=== PATIENT | female | born 1985 | race Caucasian/White ===

== ENCOUNTER 2023-09-04 18:08 | Emergency (ER) | payer OTHER, SELFPAY ==
[2023-09-04 18:21] VITALS: BP 118/89
[2023-09-04 20:58] VITALS: BP 112/82
--- NOTE | 2023-09-04 21:40 | ED.GENMED ---
History of Present Illness
General
Chief Complaint: Abdominal Pain
Source: patient
Exam Limitations: none
Time Seen by Provider: 09/04/23 20:10
Nursing documentation reviewed up to this point in time: agreed with
Travel History
Have you had any contact with someone who has COVID-19?: No
Do you have any symptoms of coronavirus? Fever > 100 degrees, chills, cough, shortness of breath, sore throat, loss of taste or smell, muscle aches, or headache?: No
History of Present Illness
History of Present Illness:
Pt who has been taking Zepbound x 6 weeks for weight control, presents ED secondary to difficulty with bowel movement despite having the urge over the past 1 week. Patient has attempted Colace as well as enema at home, without improvement symptoms.
Denies fever or chills. Patient reports mild lower abdominal cramping sensation, with early satiety. Denies fever or chills. Denies trauma. Denies back pain. Denies difficulty with urination. Patient has had difficulty with bowel movements in
the past, with history of IBS, but states that her symptoms are more severe.
Past History
Past History
ED Past Medical History: None
ED Past Surgical History: None
Social History
Tobacco: Non-smoker
Alcohol: None
Review of Systems
Review of Systems
Allergies reviewed?: Yes
All Other Systems: ROS reviewed and negative except as documented in HPI and ROS
Constitutional: Reports no symptoms; Denies fever
ABD/GI: Reports abdominal pain and constipated; Denies nausea, vomiting or diarrhea
Musculoskeletal: Reports no symptoms
Skin: Reports no symptoms
Neurological: Reports no symptoms
Phy Exam
Physical Exam
Physical Exam:
Physical Exam
General: no apparent distress, not acutely ill. afebrile
Head: nc/at. eomi
Neck: supple. no meningeal signs.
Abdomen: normal bowel sounds. not tender. rectal exam (RADHA English, at bedside): no stool noted at rectal vault.
Neuro: alert and oriented. no focal neurological deficits
Skin: no rash
Psychiatric: well kept. interactive and cooperative
Extremities: no edema. no calf tenderness.
Course
Orders/Labs/Results
Orders:
Orders
09/04/23 21:07
Phosphate Enema [Fleet Phosphate Enema-Adult] 135 ml RECTAL NOW STA
09/04/23 21:08
Mineral Oil Enema [Fleet Mineral Oil Enema] 133 ml .ROUTE .STK-MED ONE
09/04/23 21:50
Enema- Treatment ONCE
Type: Milk of Molasses
09/04/23 22:22
Mineral Oil Enema [Fleet Mineral Oil Enema] 133 ml RECTAL NOW STA
09/04/23 23:32
Enema- Treatment ONCE
Type: Soap Suds
09/05/23 01:49
Magnesium Citrate [Citroma] 300 ml PO ONCE ONE
Vital Signs
Initial and Last Documented VS:
Initial Vital Signs
Temp Pulse Resp BP Pulse Ox
98.3 F 103 18 118/89 98
09/04/23 18:21 09/04/23 18:21 09/04/23 18:21 09/04/23 18:21 09/04/23 18:21
Last Documented Vital Signs
Temp Pulse Resp BP Pulse Ox
98.3 F 103 18 113/79 96
09/04/23 18:21 09/04/23 18:21 09/04/23 18:21 09/05/23 02:00 09/04/23 21:01
MDM/Problems Addressed
MDM/Problems Addressed:
X-ray from reviewed: no acute findings, i.e. dilated loops of bowel.
Pt given multiple enema with minimal bowel movements. However, as patient has had small BMs at home - as such, doubt obstructive process. As such, no indication for any additional imaging studies, i.e. CT scan, at this time. Will D/C home with mag
citrate along with recommendation to try Miralax at home, along with PMD/GI f/u.
In addition, discussed about routine noted on her urine study at urgent care center. Recommended repeat urinalysis with PCP. If proteinuria still exist, may need nephrology consultation as an outpatient.
Patient expresses understanding at time of discharge. Patient otherwise is afebrile, helically stable, and nontoxic-appearing at discharge.
*Critical Care Note
Total Time (30-74mins, 75-104mins- exclusive of procedures): Not Applicable
ED Attending Note
-
Portions of this chart may have been created with voice recognition software.� Occasional wrong word or��sound alike� substitutions may have occurred due to the inherent limitations of voice recognition software.
Discharge Plan
Departure
Patient Disposition: Home (Routine Discharge)
Date of Disposition: 09/05/23
Time of Disposition: 01:53
Patient with high blood pressure during this ER visit?: Yes
Discharge Problem:
Constipation
Instructions: Constipation, Adult ED
Prescriptions:
No Action
clonazepam 1 MG tablet
1 mg PO DAILYPRN PRN (Reason: anxiety)
Patient Comments:
04/28/2020: last filled 12/03/19, 45 tabs for 30 days from [facility]
Formula 1 TAB tablet
1 tab PO DAILY
ferrous sulfate [FeroSul] 325 MG tablet
325 mg PO DAILY
fluoxetine [Prozac] 40 MG capsule
50 mg PO DAILY
Patient Comments:
04/28/2020: take w/10mg= 50mg
acetaminophen 325 mg Tablet
650 mg PO Q4HPRN PRN (Reason: mild pain) Qty: 20 0RF
oxycodone-acetaminophen 5-325 mg Tablet
1 tab PO Q4HPRN PRN (Reason: moderate pain) Qty: 10 0RF
ibuprofen 600 mg Tablet
600 mg PO Q6HPRN PRN (Reason: cramps) Qty: 20 0RF
cyclobenzaprine 10 mg tablet
10 mg PO TID PRN (Reason: muscle spasm) Qty: 14 0RF
pantoprazole [Protonix] 40 mg tablet,delayed release (DR/EC)
40 mg PO DAILY Qty: 30 0RF
Referrals:
Xi Fletcher MD [Active] -
Gm Weinberg DO [Family Provider] -
Activity Restrictions/Additional Instructions:
As discussed, please follow-up with your GI physician and/or referred to clinical material handler for further evaluation and treatment especially in light of protein noted in your urine test. Please take hwph-lyb-fskczir MiraLAX twice daily x 3 days, and then
once daily until your bowel movements are regulated.
Interventions
Interventions:
*Risk Screen - Suicide Last Done: 09/04/23 18:24
*General Assessment Last Done: 09/04/23 18:24
*Neglect/Abuse Screening Last Done: 09/04/23 18:24
ED- Fall Risk Assessment Last Done: 09/04/23 21:00
*ED COVID-19 Vaccine History Last Done: 09/04/23 20:59
*Nursing Disposition Last Done: 09/05/23 02:05
TS-Nzsgxp-Rnsfoaokyp Assessment Last Done: 09/04/23 20:41
Discharge Date and Time
Discharge Date/Time: 09/05/23 02:06
Print Language: KHMER
[2023-09-04] MEDS: FLEET MINERAL OIL ENEMA 133 ML RECTAL (22:23)
[2023-09-05] MEDS: CITROMA 300 ML PO (01:59)
[2023-09-05 02:00] VITALS: BP 113/79
== END 2023-09-05 02:06 | disposition home or self-care (01) ==
LOC: EMR 18:08
PROVIDERS: EMERGENCY PHYSICIAN Emergency Medicine; FAMILY PHYSICIAN Internal Medicine
DX: K59.00 Constipation, unspecified (principal); R03.0 Elevated blood-pressure reading, without diagnosis of hypertension
CPT/HCPCS: 99283